=== PATIENT | male | born 1975 | race Two or more races ===

== ENCOUNTER 2017-05-05 20:10 | Emergency (ER) | payer OTHER ==
[2017-05-05 20:28] VITALS: BP 132/98; PULSE 75; RESP 15; TEMP 97.5; O2SAT 95
--- NOTE | 2017-05-05 20:36 | EDPHY ---
H & P HPI/ROS: CHIEF COMPLAINT: Bilateral hand numbness History by patient HISTORY OF PRESENT ILLNESS: 41-year-old otherwise healthy man presents complaining of bilateral left greater than right numbness and tingling in his hands which has been going on intermittently for the last 3 months. He notices especially when he wakes up in the morning usually resolves after about 10 minutes. There is no associated neck pain. He says he did have an injury to his wrist where he felt something pop 10 years ago in his left wrist and then a year later in his right wrist. He is worried that he may have a persistent tendon problem from that. He also gets occasional achy throbbing pain in his right forearm. He denies any hand weakness. Patient has a history of heavy alcohol use but since he has moved from [place] to [place] 8 months ago he had stopped drinking. He does smoke cigarettes. REVIEW OF SYSTEMS: As in HPI, and all other systems reviewed and are negative Smoking Status: Current every day smoker Physical Exam: General Appearance: Alert and no distress. Eyes: Pupils equal and round no injection. Musculoskeletal: Neck is supple and nontender. Neck: No bony tenderness, full range of motion without pain Extremities: Bilateral radial pulses 2+, bilateral hand radial, median and ulnar nerve intact motor and sensory, full range of motion of all fingers and wrist actively, passively and against resistance. There is no thenar eminence wasting of either hand. Elbow has full range of motion against resistance without pain. Positive Phalen's test on the left. Skin: No rashes or lesions except as described above. Neuro: Awake alert oriented x3, cranial nerves 2-12 intact, normal gait Constitutional: Initial Vital Signs Temperature (C) 36.4 C 05/05/17 20:20 Heart Rate 75 05/05/17 20:20 Respiratory Rate 15 05/05/17 20:20 Blood Pressure 132/98 H 05/05/17 20:20 O2 Sat (%) 95 05/05/17 20:20 O2 Delivery Mode Room Air Allergies/Adverse Reactions: No Known Allergies Allergy (Unverified 05/05/17 20:20) Home Medications: Medication Instructions Recorded NK [No Known Home Meds] 05/05/17 MDM/Departure - [facility] ED Course/Re-evaluation: 41-year-old man presents with bilateral left greater than right paresthesias consistent with carpal tunnel syndrome. There is no evidence of systemic toxicity or central nervous problem at this time. We will treat the patient with nocturnal splints and he has been referred to Hand surgery. Patient is also referred for primary care. - Depart Disposition: Home, Routine, Self-Care Clinical Impression: Numbness and tingling in both hands Condition: Good Instructions: Paresthesia (ED) Additional Instructions: You were seen by Dr. Marguerite Hendricks today. I recommend wearing bilateral wrist splints for carpal tunnel syndrome at night while you are sleeping. He did not need to wear the splints during the day. You may continue taking Aleve or ibuprofen as needed for pain. Please follow- up with Dr. Banda, the hand surgeon for further evaluation. Please establish the primary care doctor. Return for any worsening or new concerns. Referrals: NONE *PRIMARY CARE P,. [Primary Care Provider] - As per Instructions
== END 2017-05-05 20:40 | disposition home or self-care (01) ==
LOC: CED 20:10
DX: R20.2 Paresthesia of skin (principal); F17.200 Nicotine dependence, unspecified, uncomplicated
CPT/HCPCS: L3908